=== PATIENT | female | born 1975 | race Two or more races ===

== ENCOUNTER → 2016-10-09 | Outpatient (CLI) | payer OTHER ==
--- NOTE | ~2016-10-09 | MY11 ---
[facility] A Service of [facility] RADIOLOGY TEXT RESULTS PATIENT: SAUL JAY LOCATION: [facility] : 77 UNIT #: [id number] AGE: [address]: TIFFANY JACKSON APRN SEX: F ORDER DR: [id number] [facility] [address] [place], [place] [address] [id number] O MR#: [id number] Acc #: [id number] NAME: SAUL JAY : 1975 SEX: F STUDY DATE/TIME: 10/09/2016 16:06 UNIT: [facility] ROOM: STUDY DESCRIPTION: MY Mammogram Screening Dig Russel Attending Physician: Nat Jackson M.D. Referring Physician: Brent Clayton M.D. Ordering Physician: Nat Jackson M.D. Primary Care Physician: Brent Clayton M.D. MEDICAL IMAGING REPORT This report is preliminary unless electronic signature is present EXAM Digital screening mammogram, 10/09/2016 HISTORY 41-year-old woman no risk elevation. Annual screening. COMPARISON Outside mammogram date 09/14/2015 [place]. FINDINGS Digital imaging of each breast was completed utilizing screening protocol. Review includes FDA-approved CAD device. Breast parenchyma is dense. Generalized fibroglandular opacities are noted in each breast. Accessory breast tissue projects in the axillary tail of the left breast. There is no dominant breast mass. There are no suspicious microcalcifications and no focal architectural distortion. IMPRESSION Negative stable mammogram. Accessory breast tissue axillary tail left breast. Annual screening recommended. Patients over the age of 40 are entered into a reminder system with target due date for the next mammogram. A result letter will also be sent to the patient. BIRADS: 1 Negative Dictated by... Davis Hendricks M.D. THIS IS AN ELECTRONICALLY VERIFIED REPORT Davis Hendricks M.D. at 10/14/2016 1:23 PM JAVIER/patrice [facility] A Service of [facility] RADIOLOGY TEXT RESULTS PATIENT: SAUL JAY LOCATION: [facility] : 77 UNIT #: [id number] AGE: [address]: TIFFANY JACKSON APRN SEX: F ORDER DR: TD: 10/14/2016 09:39 JOB #: [id number] MEDICAL IMAGING REPORT Page 1 of 1 COPY
== END | disposition home or self-care (01) ==
LOC: CWCC 15:53
DX: Z12.31 Encounter for screening mammogram for malignant neoplasm of breast (principal)
CPT/HCPCS: G0202